=== PATIENT | female | born 1960 | race Caucasian/White ===

== ENCOUNTER → 2020-02-12 | Outpatient (CLI) | payer OTHER | LOC: CAT 08:25 | PROVIDERS: ATTEND Family Medicine | DX: Z13.6 Encounter for screening for cardiovascular disorders (principal); I25.10 Atherosclerotic heart disease of native coronary artery without angina pectoris; E78.00 Pure hypercholesterolemia, unspecified ==

== ENCOUNTER → 2021-03-20 | Outpatient (CLI) | payer OTHER ==
[~2021-03-20] MED LIST: ASA81BEC PO; HYDROCHLOROTH12.5 M2 PO; ZYRTEC10 M5 PO
== END ==
LOC: LAB 08:14
PROVIDERS: ATTEND Student in an Organized Health Care Education/Training Program
DX: Z01.812 Encounter for preprocedural laboratory examination (principal); Z20.822 Contact with and (suspected) exposure to COVID-19

== ENCOUNTER 2021-03-22 06:18 | Inpatient (IN) | payer OTHER ==
[~2021-03-22] VITALS: Ht 165.1 cm; Wt 69.4 kg
--- NOTE | 2021-03-22 07:26 | EKG ---
[address] [address] ELECTROCARDIOGRAM REPORT Name: SHIRA MUELLER Room #: 150-2 ADM IN M.R.#: [id number] Admission: 03/22/21 Attend Phys: Carter Pearl MD Discharge: Date of : 58 Report #: [id number] [facility] Test Date: 2021-03-22 Test Time: 06:51:35 Pat Name: SHIRA MUELLER Department: Room: Gender: F Discharge Specialist: CELESTINA : 1960 Requested By: Carter Pearl Order Number: [id number] : Nazario Goetz Measurements Intervals [place] Rate: 81 P: 70 MO: 165 QRS: 71 QRSD: 97 T: 47 QT: 394 QTc: 458 Interpretive Statements Sinus rhythm No previous ECG available for comparison Electronically Signed On 03-22-2021 7:26:35 [employer]OEMAKER [employer] by Nazario Goetz [email or web address] <ELECTRONICALLY SIGNED> By: Nazario Goetz MD, [facility] 03/22/21 0726 [phone] Nazario Goetz MD, FACC /EPI
[2021-03-22 08:01] VITALS: BP 174/86
[2021-03-22 14:53] VITALS: BP 134/81
--- NOTE | 2021-03-22 18:44 | NUR ---
PT BACK FROM PACU AT 1430 AFTER HAVING ILEOCECECTOMY AND INTRAOPERATIVE COLONSCOPY. PT IS AOX4. R HAND PIV CDI, IVF STARTED PER JUL. MILLER IN PLACE, MILLER CARE PROVIDED. PROVIDED ORIENTATION TO ROOM AND SURROUNDNGS. FALL PRECAUTIONS IN PLACE. HOURLY ROUNDING CONTINUING. CALL LIGHT IN REACH
[2021-03-22 19:16] VITALS: BP 151/76
--- NOTE | 2021-03-23 02:58 | NUR ---
PT IS A/O X4 AND IS CURRENTLY UP WITH ASSISTANCE TO THE BR. ROOM AIR. VSS AFEBRILE. MEDICATIONS GIVEN WHOLE WITH WATER. PT HAS HAD A COUPLE LOOSE STOOLS. GUT STIMULATOR PROVIDED DIRECTED. MILLER IN PLACE AT THIS TIME BUT IS SCHEDULED TO BE REMOVED IN THE AM. PATENT AND DRAINING LIGHT YELLOW URINE. MAINTANCE FLUIDS INFUSING DIRECTED. PT C/O ABDOMINAL PAIN AND DISCOMFORT WITH CATHETER. PRN PAIN MEDICATION GIVEN DIRECTED. LAP SITES TO ABDOMEN ARE C/D/I. FALL PRECAUTIONS IN PLACE, CALL LIGHT IS WITHIN REACH. WILL CONTINUE TO MONITOR.
[2021-03-23 04:20] VITALS: BP 122/61
[2021-03-23 05:27] LABS: HEMATOCRIT 35.3 % (37.0-47.0); HEMOGLOBIN 11.8 gm/dL (12.0-15.0); MCH 32.3 pg (26.0-34.0); MCHC 33.5 g/dL (28.0-37.0); MCV 96.5 fL (80.0-100.0); RBC 3.66 mil/uL (4.20-5.00); RDW 12.7 % (10.5-14.5); WBC 9.6 thou/uL (4.0-11.0)
[2021-03-23 05:55] LABS: ALBUMIN 3.4 g/dL (3.4-5.0); CALCIUM 8.6 mg/dL (8.5-10.1); CREATININE 0.6 mg/dL (0.6-1.0); MAGNESIUM 1.9 mg/dL (1.8-2.4); PHOSPHORUS 2.6 mg/dL (2.5-4.9)
[2021-03-23 08:27] VITALS: BP 121/70
[2021-03-23 16:09] VITALS: BP 130/73
--- NOTE | 2021-03-23 16:32 | NUR ---
Chart reveiwed and case discussed with the care team. Pt is postop from lap abdominal surgery. She was indep and working prior to admission. She has insurance per her employer and pcp is Dr. Simmons. She lives with her spouse and children. She is up sba with nursing. No cm interventions are indicated at this time. Will remain available should dc needs arise.
--- NOTE | 2021-03-23 17:53 | NUR ---
Pt A 7 O x4. Pt VS stable. Pt received medications as ordered and also received PRN medications. Pt foster d/c'd this shift. PT is going to bathroom. Pt is SBA with ADLs and cares. Pt is room air. Pt is able to make needs known
[2021-03-23 20:28] VITALS: BP 138/72
--- NOTE | 2021-03-24 04:11 | NUR ---
PT IS A/O X4 AND IS UP WITH SBA TO THE BR. ROOM AIR. VSS. MAINTANCE FLUID INFUSING AT PRESCRIBED RATE. MEDICATIONS GIVEN WHOLE WITH WATER. PT C/O ABDOMEN PAIN. PAIN MEDICATION GIVEN DIRECTED. PT IS PLESANT AND COOPERATIVE. CALLS OUT APPROPRIATELY FOR ASSISTANCE.
[2021-03-24 04:41] LABS: ALBUMIN 3.1 g/dL (3.4-5.0); CALCIUM 8.3 mg/dL (8.5-10.1); CREATININE 0.7 mg/dL (0.6-1.0); PHOSPHORUS 2.4 mg/dL (2.5-4.9); POTASSIUM 3.8 mmol/L (3.5-5.1)
[2021-03-24 05:01] LABS: HEMATOCRIT 29.9 % (37.0-47.0); HEMOGLOBIN 10.1 gm/dL (12.0-15.0); MCH 32.7 pg (26.0-34.0); MCHC 33.6 g/dL (28.0-37.0); MCV 97.1 fL (80.0-100.0); RBC 3.08 mil/uL (4.20-5.00); RDW 12.7 % (10.5-14.5); WBC 6.5 thou/uL (4.0-11.0)
[2021-03-24 08:24] VITALS: BP 127/71
--- NOTE | 2021-03-24 11:07 | PATH ---
[facility] [employer] [place] [address] PATHOLOGY RPT PROCEDURE Name: ELISABETH MUELLER Room #: 441-P ADM IN M.R.#: [id number] Admission: 03/22/21 Date of : 58 Discharge: Report #: [id number] Path Case #: [id number] [facility] Accession Number: [id number] . 01 Material submitted: . PART A: ileum - ileocecectomy PART B: ileum - ileocecectomy fs PART C: colon - COLON MASS . 01 Clinical history: . COLON MASS . 02 Frozen section diagnosis: . FROZEN SECTION DIAGNOSIS Ileocolectomy: - Small bowel with chronic inflammation and serosal deposits (pigmented). - Negative for malignancy. . The report was given to Dr. Carter Pearl at [facility] by Dr. Alfred on 03/22/2021 at 10:30 a.m., and a written report is placed in the patient's chart. The remainder of the specimen will be sectioned at [facility] after adequate fixation. . . FROZEN SECTION GROSS DESCRIPTION Received fresh from the operating room is an ileal and cecum, ileocolectomy specimen. The specimen has previously been opened by the surgeon. There is a 0.9 cm ulcer/perforation at ileocecal valve close to cecum with raised edges. Novelty Twister Operator section is submitted for frozen section diagnosis in FSA1, and subsequently in formalin in block A1. (ANK:aleyda; 03/22/2021) . . Frozen section performed at [facility], [address] [place] [address]. NNK/MBR . 02 Diagnosis: A. Ileum, cecum, ascending colon and appendix, ileocecectomy: - Cecal colonic wall with superficial ulceration, ischemic changes, possible perforation with hemorrhage and granulation tissue. - Negative for polyps, adenomatous change, or malignancy. - Terminal ileal wall shows prominent lymphoid hyperplasia, surface ischemic changes without atypia or malignancy. - Appendix with mild acute luminal inflammation. - Two lymph nodes identified, negative for malignancy. - Proximal ileal and distal colonic margins are negative for malignancy. . [address] [place] [address] PATHOLOGY RPT PROCEDURE Name: ELISABETH MUELLER Room #: 441-P ADM IN M.R.#: [id number] Admission: 03/22/21 Date of : 58 Discharge: Report #: [id number] Path Case #: [id number] B. Ileocecectomy, frozen section: - Colonic wall with superficial ischemic changes, granulation tissue and ulceration. - Negative for atypia or malignancy. . C. Colon mass, gross only: - Calcified material and mesh-like fibers (gross only). LBQ 03/23/2021 1443 Local . 02 Comment: There is a transmural ulceration at the cecum area with granulation tissue and possible serosal adhesions. Terminal ileum shows mild lymphoid hyperplasia; however, no malignancy identified. Appendix shows mild intraluminal and epithelial neutrophils, possibly related to operative procedure. The colonic epithelium has increased superficial and crypt lymphocytes. Recommend clinical correlation to rule out microscopic colitis. The colon mass i.e. foreign body exhibits mesh-like material. Pictures are on file and will be released if requested. Overall, no malignancy identified in the current specimen. (ANK/db; 03/23/2021) . 02 Electronically signed: . Jeny Alfred MD, Pathologist NPI- [id number] . 01 Gross description: . A. The specimen is received in formalin, labeled "Leaming, Elisabeth, Ileocecectomy" and consists of a previously opened portion of the ascending colon (13.0 cm in length x 2.5 cm-4.8 cm in diameter) with abundant attached fat, an attached appendix (8.7 cm in length x 0.6 cm diameter) and attached portion of terminal ileum (3.5 cm in length by 1.4 cm diameter). The proximal and distal margins are stapled and inked black. The serosa is pink-red, with abundant fine and slightly thickened adhesions. . The cecum displays a transmural defect (1.2 x 0.9 cm) which is surrounded by a red, shaggy, slightly roughened area of discoloration (2.4 x 1.9 cm). The cecal serosa also displays 2 additional shaggy dusky and hemorrhagic areas (1.5 x 0.7 cm and 2.5 x 1.1 cm). The taenia coli overlying the cecum displays a focally pink-loera, dusky area of discoloration (2.0 x 0.7 cm). The cecal mucosa adjacent to the transmural defect, and the proximal mucosa of the ascending colon display multiple min-red, areas of mucosal granularity (ranging from 0.5 x 0.4 cm to 2.5 x 2.0 cm) as well as areas of mucosal detachment (ranging from 0.7 x 0.5 cm to 1.8 x 0.8 cm). The granular areas of cecal and ascending colon mucosa roughly overly the serosal shaggy and hemorrhagic areas. . [facility] [address] [place] [address] PATHOLOGY RPT PROCEDURE Name: ELISABETH MUELLER Room #: 441-P ADM IN M.R.#: [id number] Admission: 03/22/21 Date of : 58 Discharge: Report #: [id number] Path Case #: [id number] The terminal ileum mucosa displays a min, slightly depressed ulcer (1.7 x 0.8 cm) that comes to within 2.9 cm from the proximal margin, 0.5 cm from the ileocecal valve, 13.5 cm from the distal margin and 3.0 cm from the mesenteric margin (selectively inked orange). Sectioning through the ulcer reveals min unremarkable cut surfaces measuring up to 0.2 cm thick, without obvious invasion. The appendiceal serosa is focally hemorrhagic and dusky with fine adhesions and without fibrinous exudate. The average appendiceal wall thickness is 0.3 cm and the lumen is focally dilated up to 0.5 cm and contains a pale yellow cloudy liquid. Two min-pink rubbery candidate lymph nodes (ranging from 0.5 x 0.3 x 0.2 cm to 0.6 x 0.5 x 0.2 cm) are identified upon brief examination. Photographs are taken. Novelty Twister Operator sections to include the entirety of the ulcer and sections surrounding the transmural defect are submitted as follows: . A1-A2: Proximal margin and distal margin, submitted en face, entirely submitted A3: Mesenteric margin, submitted en face, represented A4-A5: Sections adjacent to transmural defect, entirely submitted to include the overlying shaggy, dusky and hemorrhagic serosa A6-A7: Slightly granular mucosa and mucosal detachment from the cecum and proximal ascending colon, represented A8: Area of discoloration on proximal cecal taenia coli, majority submitted, represented A9-A10: Terminal ileum ulcer, entirely submitted A11: Appendix, represented to include the entirety of the distal tip A12: 2 intact candidate lymph nodes, entirely submitted . B. PLEASE SEE GROSS DESCRIPTION UNDER FROZEN SECTION DIAGNOSIS. . C. The specimen is received in formalin, labeled "Leaming, Elisabeth, colon mass" and consists of a green-brown, J-shaped, markedly calcified tissue (3.2 x 2.0 x 1.9 cm) with one rounded end and an opposing shaggy roughened end. Extending from the roughened end is a portion of min mesh-like material (0.6 x 0.5 x 0.2 cm). Sectioning reveals brown-yellow to min-pink calcified cut surfaces. Embedded within the tissue are multiple min string-like fibers. Upon sectioning the specimen releases an acrid odor. Photographs are taken. This specimen is for gross examination only. (UPPER SKAGIT; 03/22/2021) JETT/MBAlfonzo 03/23/2021 1428 Local . 02 Pathologist provided ICD-10: K63.3, K92.2, K35.80 . 02 CPT . 614741, 888108, 980260 Specimen Comment: A courtesy copy of this report has been sent to [phone] Specimen Comment: Report sent to Specimen Comment: A duplicate report has been generated due to demographic [facility] [address] [place] [address] PATHOLOGY RPT PROCEDURE Name: ELISABETH MUELLER Room #: 441-P ADM IN M.R.#: [id number] Admission: 03/22/21 Date of : 58 Discharge: Report #: [id number] Path Case #: [id number] updates. Performed at: [facility] [address] [facility] [address], [place] [id number] MD Dean Bee MD Phone: [phone] Performed at: [address] [id number] MD Bel Rose MD Phone: [phone]
--- NOTE | 2021-03-24 15:44 | NUR ---
Discussed with attending physician. Anticipated weekend discharge, home no needs.
[2021-03-24 22:12] VITALS: BP 134/73
--- NOTE | 2021-03-25 03:00 | NUR ---
UPON SHIFT REPORT, PT AT BEDSIDE, PT REPORTING 8/10 ABDOMINAL AND BACK PAIN, ALSO REPORTING SOB WHILE ON ROOM AIR, NO DESATURATIONS NOTED, PT REFUSING APPLICATION OF O2. PT RECEIVING SCHEDULED IV TORADOL Q6HR, PO IBUPROFEN Q6HR, AND PO APAP Q6HR PRIOR TO START OF SHIFT. UPON SHIFT ASSESSMENT, PT AOX4. PT REPORTS 8/10 RIGHT ABDOMEN, NECK, AND BACK PAIN. PT RECEIVING PRN IV DILAUDID Q2HR WITH PRN PO TRAMADOL AVAILABLE. PT DENIES SOB WHILE ON ROOM AIR, REPORTING SOB WHEN PAIN RADIATES TO NECK, CONTINUES WITHOUT DESATURATION. ONCALL PROVIDER DR. SANTANA NOTIFIED, RECEIVED ORDERS FOR PRN PO SIMETHICONE Q4HR. PT TOLERATING PO INTAKE OF FLUIDS AND FULL LIQUID DIET WITHOUT ISSUE. PT WITHOUT NAUSEA OR EMESIS. PT AMBULATING INDEPENDENTLY IN ROOM AND TO BATHROOM. PT RESTING IN BED OTHERWISE. FREQUENT REPOSITIONING ENCOURAGED WHILE IN BED, PT NOTED TO SHIFT INDEPENDENTLY. SENSATION INTACT, CAPILLARY REFILL LESS THAN 3SEC, PERIPHERAL PULSES PALPABLE IN ALL EXTREMITIES. PT ENCOURAGED TO NOTIFY STAFF FOR ALL NEEDS, CALL LIGHT WITHIN REACH, BED LOCKED IN LOWEST POSITION, FREQUENT MONITORING WILL CONTINUE.
[2021-03-25 05:54] LABS: HEMATOCRIT 31.6 % (37.0-47.0); HEMOGLOBIN 10.4 gm/dL (12.0-15.0); MCHC 32.9 g/dL (28.0-37.0); MCV 97.4 fL (80.0-100.0); RBC 3.24 mil/uL (4.20-5.00); RDW 12.9 % (10.5-14.5); WBC 5.8 thou/uL (4.0-11.0)
[2021-03-25 06:10] LABS: ALBUMIN 2.8 g/dL (3.4-5.0); CALCIUM 8.4 mg/dL (8.5-10.1); CREATININE 0.5 mg/dL (0.6-1.0); POTASSIUM 3.8 mmol/L (3.5-5.1)
[2021-03-25 07:55] VITALS: BP 134/76
--- NOTE | 2021-03-25 10:21 | NUR ---
ASSUMED PT CARE THIS AM. PT IS ALERT & ORIENTED X4. PT HAS IV SITE ON LAC SALINE LOCKED. PT IS UP AD LINDA. PT IS ON ROOM AIR. LAST BM WAS THIS AM. ADVANCED DIET TO REGULAR PER DR ORDERED. GIVEN SCHEDULED MEDICATIONS. WILL CONTINUE TO MONITOR PT. FOLLOW POC.
[2021-03-25 17:11] VITALS: BP 125/73
[2021-03-25 20:10] VITALS: BP 158/90
[2021-03-26 08:08] VITALS: BP 128/69
[2021-03-26] MEDS ORDERED: NORCO5 PO (08:35)
[2021-03-26] MEDS ORDERED: ONDANSETRON HCL4 M2 PO (08:35)
[2021-03-26 09:19] VITALS: BP 128/69
[2021-03-26] MEDS ORDERED: TORADOL 10 MG T10 MG PO (09:57)
--- NOTE | 2021-03-26 11:48 | NUR ---
ASSUMED CARE OF PT AT 0700 THIS MORNING. PT IS A/OX4 AND HAVE NO COMPLAINTS AT THIS TIME. NO FALL PRECAUTIONS NEEDED AND PT IS INDEP. LAP SITES X5 WITH DERMA-FUENTES AND ABD BINDER IS IN PLACE. ASSESSMENTS NOTED IN CHART AND OTHERWISE UNREMARKABLE. CALL LIGHT AND OTHER NEEDS ARE IN REACH. MEDS AND TX GIVEN NEEDED AND SCHEDULED. WILL MONITOR AND NOTE ANY CHANGES. DR. SANTANA SENT DISCHARGE FOR PT AND STATED SHE CAN GO HOME WITH LIMITATIONS. PT SIGNED DISCHARGE ORDERS AND RECEIVED EDUCATION AND DISCHARGE PAPERWORK. PT STATED THAT SHE CANNOT TAKE [facility] DUE TO MAJOR ADVERSE REACTIONS. NOTIFIED VIA TEXT DR. SANTANA AND HE SCRIBED HER TORDOL, 15 TABS WHICH IS WHAT THE PT REQUESTED. PT WAS TAKEN OUT TO POV BY WC AND EXTRACT OPERATOR.
== END 2021-03-26 11:00 | disposition home or self-care (01) | DRG 331 ==
LOC: PRE → TBA 06:18 → PRE 08:18 → 4S 14:32 → PRE 15:47 → 4S 03-26 11:00
PROVIDERS: ADMIT Surgery; ATTEND Surgery
DX: K63.9 Disease of intestine, unspecified (principal); Z79.82 Long term (current) use of aspirin; Z79.899 Other long term (current) drug therapy; Z88.6 Allergy status to analgesic agent
CPT/HCPCS: 10102; 50010; 50101; 50386; 50455; 50525; 50555; 50900; 51489; 51708; 51712; 52265; 52287; 53307; 53310; 54118; 56462; 56524; 56526; 56529; 57092; 57157; 58574; 58586; 58984; 62110; 62900; 70005